=== PATIENT | female | born 1975 | race African-American/Black ===

== ENCOUNTER 2022-08-27 02:17 | Emergency (ER) | payer BC, OTHER ==
[~2022-08-27] VITALS: Ht 167.6 cm; Wt 119.7 kg
[2022-08-27 02:24] VITALS: BP 148/91
--- NOTE | 2022-08-27 02:52 | NUR ---
Patient discharged to home in stable condition. Written and verbal after care instructions given. Patient verbalizes understanding of instruction.
[2022-08-28] MEDS ORDERED: METR500T PO (01:51)
== END 2022-08-27 02:55 | disposition home or self-care (01) ==
LOC: ER 02:19
DX: L29.9 Pruritus, unspecified (principal); Z88.8 Allergy status to other drugs, medicaments and biological substances

== ENCOUNTER 2022-08-27 18:17 | Emergency (ER) | payer BC ==
[~2022-08-27] VITALS: Ht 175.3 cm; Wt 113.4 kg
--- NOTE | 2022-08-27 18:35 | NUR ---
DENZEL RA88 "[place] Abdominal Pain/Nausea Vomiting and Diarrhea. Was apparently seen here earlier today".
--- NOTE | 2022-08-27 18:40 | NUR ---
PT STATES THE GENERALIZED ABDOMINAL PAIN HAS BEEN ON AND OFF FOR 6 MONTHS NOW WITH DIARRHEA, VOMITING AND NAUSEA. PT ADMITS TO BEING HOMELESS AND WANTS TO SPEAK TO INSPECTOR PLUMBING.PLACED IN MONITOR. VSS. 02/20 PAIN. AWAITING MD ORDERS.
[2022-08-27] MEDS ORDERED: KETOROLAC TROMETHAMINE INJ 30 MG/ML VIAL IV ONE (19:00)
--- NOTE | 2022-08-27 19:00 | NUR ---
established iv line 20 g right ac ,
--- NOTE | 2022-08-27 19:01 | NUR ---
blood/urine sample obtained sent to lab
[2022-08-27] MEDS ORDERED: KETOROLAC TROMETHAMINE 15 MG/ML VIAL ONE (19:07)
[2022-08-27 19:30] LABS: ALBUMIN 3.6 g/dL (3.4-5.0); BILIRUBIN,DIRECT 0.1 mg/dL (0.0-0.2); BILIRUBIN,TOTAL 0.2 mg/dL (0.2-1.0); CALCIUM, SERUM 9.1 mg/dL (8.5-10.1); CREATININE 0.9 mg/dL (0.6-1.3); POTASSIUM 3.5 mmol/L (3.5-5.1); TOTAL PROTEIN, SERUM 7.7 g/dL (6.4-8.2)
[2022-08-27 20:01] LABS: BILIRUBIN,URINE NEGATIVE (NEGATIVE); COLOR,URINE YELLOW (YELLOW); LEUKOCYTE ESTERASE ,URINE NEGATIVE (NEGATIVE); NITRITE, URINE NEGATIVE (NEGATIVE); PROTEIN,URINE NEGATIVE (NEGATIVE); UGLUCOSE NEGATIVE (NEGATIVE); UROBILINOGEN,URINE 0.2 EU/dL (0.2)
--- NOTE | 2022-08-27 20:32 | NUR ---
PT TAKEN TO CT SCAN
[2022-08-27 20:40] LABS: BACTERIA,URINE RARE /HPF (None Seen); RBC,URINE 0-2 /HPF (0-2); WBC,URINE 0-2 /HPF (0-3)
[2022-08-27 20:41] LABS: MUCUS,URINE Few /LPF (None Seen)
[2022-08-28] MEDS ORDERED: AZITHROMYCIN 250 MG TABLET PO ONE (00:30)
[2022-08-28] MEDS ORDERED: CEFTRIAXONE 1GM BAG (ER ONLY) 1 GM/50 ML PIGGYBACK IV ONE (00:30)
[2022-08-28] MEDS ORDERED: FLUCONAZOLE (100 MG) 100 MG TABLET PO ONE (01:00)
[2022-08-28] MEDS ORDERED: CEFTRIAXONE 1GM BAG (ER ONLY) 50 ML IV ONE (01:22)
[2022-08-28] MEDS ORDERED: FLUCONAZOLE (100 MG) 100 MG TABLET ONE (01:23)
[2022-08-28] MEDS ORDERED: METR500T PO (01:51)
[2022-08-28] MEDS ORDERED: AZITHROMYCIN 250 MG TABLET ONE (02:27)
[2022-08-28 02:45] VITALS: BP 164/85
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
== END 2022-08-28 02:45 | disposition home or self-care (01) ==
LOC: ER 18:24
DX: K52.9 Noninfective gastroenteritis and colitis, unspecified (principal); N89.8 Other specified noninflammatory disorders of vagina; Z79.899 Other long term (current) drug therapy; Z59.00 Homelessness unspecified; Z88.5 Allergy status to narcotic agent
CPT/HCPCS: 99285; 74176; 96375; 80048; 83690; 80076; 84703; 81001; 36415; 87491; 87591; 96365; 87210; J7030; J1885; J0696